=== PATIENT | male | born 1970 | race Caucasian/White ===

== ENCOUNTER 2020-01-19 19:26 | Emergency (ER) | payer OTHER ==
--- NOTE | 2020-01-19 20:40 | RAD ---
PORTABLE CHEST: 01/19/20 INDICATIONS: Cough. COVID-19 test pending. FINDINGS: The lungs appear clear. No infiltrate identified. Heart and mediastinum unremarkable. IMPRESSION: No evidence of infiltrate. POS: [facility]
== END 2020-01-19 21:53 | disposition home or self-care (01) ==
LOC: ERS 19:26
DX: J06.9 Acute upper respiratory infection, unspecified (principal); F17.210 Nicotine dependence, cigarettes, uncomplicated
CPT/HCPCS: 71045